=== PATIENT | male | born 1985 | race Caucasian/White ===

== ENCOUNTER 2016-12-28 20:34 | Emergency (ER) | payer MEDICAID ==
[~2016-12-28] VITALS: Ht 177.8 cm; Wt 72.6 kg
[2016-12-28 21:28] LABS: Basophils # (auto) 0 uL; Basophils % (auto) 0.2 % (0.0-2.0); CONDITION Y; Eosinophils # (auto) 0.3 uL; Eosinophils % (auto) 2.2 % (0.0-7.0); Hematocrit 50.7 % (41.0-53.0); Hemoglobin 17.3 g/dL (13.5-17.5); Lymphocytes # (auto) 2.4 uL; Lymphocytes % (auto) 19.9 % (10.0-50.0); Mean Corpuscular Hgb Conc. 34.2 g/dL (32.0-36.0); Mean Corpuscular Volume 93.8 fL (80.0-100.0); Mean Platelet Volume 8.4 fL (7.4-10.4); Monocytes # (auto) 0.5 uL; Monocytes % (auto) 4.5 % (0.0-12.0); Neutrophils # (auto) 8.9 uL; Neutrophils % (auto) 73.2 % (37.0-80.0); Platelet Count (auto) 328 10^3/uL (140-450); Red Cell Distribution Width 13.5 % (11.6-16.0); White Blood Cell 12.1 10^3/uL (4.4-10.8)
[2016-12-28 21:31] LABS: Urine Bilirubin Negative (Negative); Urine Blood Negative /uL (Negative); Urine Color Yellow (Yellow); Urine Glucose Normal (Normal); Urine Ketone Negative (Negative); Urine Mucus FEW (None Seen); Urine Nitrite Negative (Negative); Urine RBC <1 /hpf (0 - 3); Urine Squamous Epithelial Cell FEW /hpf (<5); Urine pH 5.5 (5.0-8.0)
[2016-12-28 21:51] LABS: Albumin 3.9 g/dL (3.4-5.0); Alkaline Phosphatase 86 U/L (45-117); Anion Gap 10 (5-15); Aspartate Aminotransferase 12 U/L (15-37); BUN/Creatinine Ratio 6.8; Bilirubin, Total 0.6 mg/dL (0.2-1.0); Blood Urea Nitrogen 6 mg/dL (7-18); Calcium 8.7 mg/dL (8.5-10.1); Carbon Dioxide 27 mmol/L (21-32); Chloride 107 mmol/L (98-107); GFR African American 129 mL/min; GFR Non-African American 107 mL/min; Glucose 87 mg/dL (74-106); Magnesium 2.3 mg/dL (1.6-2.6); Potassium 3.7 mmol/L (3.5-5.1); Sodium 144 mmol/L (136-145); Total Protein 7.3 g/dL (6.4-8.2)
[2016-12-29] MEDS ORDERED: MORPHINE SULF INJ 2 MG/ML SYRINGE 1ML IV ONE (03:15)
[2016-12-29] MEDS ORDERED: ONDANSETRON HCL 4 MG/2 ML VIAL IV ONE (03:15)
[2016-12-29 03:50] VITALS: BP 123/73
== END 2016-12-29 03:22 | disposition home or self-care (01) ==
LOC: ER 20:40
DX: G92 Toxic encephalopathy (principal); F41.9 Anxiety disorder, unspecified; F10.129 Alcohol abuse with intoxication, unspecified; F17.210 Nicotine dependence, cigarettes, uncomplicated; F12.10 Cannabis abuse, uncomplicated; Y90.6 Blood alcohol level of 120-199 mg/100 ml
CPT/HCPCS: 36415; 71020; 80053; 80307; 81001; 83735; 84443; 84484; 85025; 93005; 96374; 96375; 99285; J2270; J2405

== ENCOUNTER 2017-01-10 12:29 | Emergency (ER) | payer MEDICAID ==
[~2017-01-10] VITALS: Ht 177.8 cm; Wt 68.9 kg
[2017-01-10 12:51] VITALS: BP 105/77
== END 2017-01-10 13:11 | disposition left against medical advice (07) ==
LOC: ER 12:36
DX: R07.89 Other chest pain (principal); Z53.21 Procedure and treatment not carried out due to patient leaving prior to being seen by health care provider
CPT/HCPCS: 93005

== ENCOUNTER 2017-01-18 19:19 | Inpatient (IN) | payer MEDICAID ==
[~2017-01-18] VITALS: Ht 177.8 cm; Wt 73.5 kg
[2017-01-18] MEDS ORDERED: NITROGLYCERIN 0.4 MG SL TAB SL PRN (20:00)
[2017-01-18] MEDS ORDERED: MORPHINE SULF INJ 2 MG/ML SYRINGE 1ML IV PRN (20:00)
[2017-01-18] MEDS ORDERED: ONDANSETRON HCL 4 MG/2 ML VIAL IV PRN (20:00)
[2017-01-18] MEDS ORDERED: METOPROLOL TARTRATE 1MG/1ML-5ML VIAL IV PRN (20:00)
[2017-01-18] MEDS ORDERED: HYDR1TAB97 PO (20:07)
[2017-01-18] MEDS ORDERED: ALPR PO (20:07)
[2017-01-18] MEDS ORDERED: ZOLP10TA PO (20:29)
[2017-01-18 20:31] LABS: Basophils # (auto) 0 uL; Basophils % (auto) 0.4 % (0.0-2.0); Eosinophils # (auto) 0.3 uL; Eosinophils % (auto) 2.9 % (0.0-7.0); Hematocrit 48.8 % (41.0-53.0); Hemoglobin 16.7 g/dL (13.5-17.5); Lymphocytes # (auto) 2.3 uL; Lymphocytes % (auto) 25.3 % (10.0-50.0); Mean Corpuscular Hemoglobin 32.6 pg (28.0-32.0); Mean Corpuscular Hgb Conc. 34.2 g/dL (32.0-36.0); Mean Corpuscular Volume 95.5 fL (80.0-100.0); Mean Platelet Volume 8.7 fL (6.9-10.8); Monocytes # (auto) 0.5 uL; Monocytes % (auto) 5.7 % (0.0-12.0); Neutrophils % (auto) 65.7 % (37.0-80.0); Nucleated Red Blood Cells % 0.1 %; Platelet Count (auto) 235 10^3/uL (140-450); White Blood Cell 9.1 10^3/uL (4.4-10.8)
[2017-01-18 20:43] LABS: Partial Thromboplastin Time 26.5 sec (22.64-33.71); Prothrombin Time 10.9 sec (9.37-12.3)
[2017-01-18] MEDS: MORPHINE SULF INJ 2 MG/ML SYRINGE 1ML IV PRN (20:53)
[2017-01-18] MEDS: SODIUM CHLOR 0.9% PF (SALINE LOCK) 10ML VIAL IV SCH (20:54)
[2017-01-18 20:58] LABS: Albumin 3.8 g/dL (3.4-5.0); BUN/Creatinine Ratio 14.6; Bilirubin, Total 0.3 mg/dL (0.2-1.0); Calcium 8.6 mg/dL (8.5-10.1); Potassium 3.7 mmol/L (3.5-5.1); Total Protein 6.9 g/dL (6.4-8.2)
[2017-01-18 21:00] VITALS: BP 145/66
[2017-01-18 21:16] LABS: Urine Bilirubin Negative (Negative); Urine Blood Negative /uL (Negative); Urine Color Yellow (Yellow); Urine Glucose Normal (Normal); Urine Ketone 1+ (Negative); Urine Mucus FEW (None Seen); Urine Nitrite Negative (Negative); Urine RBC <1 /hpf (0 - 3); Urine Squamous Epithelial Cell FEW /hpf (<5); Urine pH 6.5 (5.0-8.0)
[2017-01-18 21:51] VITALS: BP 145/66
[2017-01-18] MEDS: SODIUM CHLORIDE 0.9% 1,000 ML IV SCH (22:26)
[2017-01-18] MEDS: ZOLPIDEM TARTRATE 5 MG TAB PO PRN (22:54)
[2017-01-18] MEDS: ALPRAZolam 0.5 MG TAB PO PRN (22:54)
[2017-01-19 05:00] VITALS: BP 104/56
[2017-01-19] MEDS: MORPHINE SULF INJ 2 MG/ML SYRINGE 1ML IV PRN ×3 (06:49→18:41)
[2017-01-19 07:41] VITALS: BP 104/61
[2017-01-19] MEDS: HYDROcodone-ACET 5/325MG TAB PO PRN ×2 (08:54→17:25)
[2017-01-19] MEDS: ALPRAZolam 0.5 MG TAB PO PRN (08:54)
[2017-01-19] MEDS: SODIUM CHLORIDE 0.9% 1,000 ML IV SCH ×2 (09:02→17:48)
[2017-01-19] MEDS: SODIUM CHLOR 0.9% PF (SALINE LOCK) 10ML VIAL IV SCH ×2 (10:25→21:05)
[2017-01-19 11:15] VITALS: BP 108/66
[2017-01-19] MEDS ORDERED: LIDOCAINE 2%HCL (LOCAL ANESTH.) INJ 20ML MDV ONE ×2 (13:22→15:42)
[2017-01-19] MEDS ORDERED: ISOPROTERENOL HCL INJECTION 1 MG in D5W 5% 250 ML IV SCH (13:30)
[2017-01-19] MEDS ORDERED: fentaNYL CITRATE 100 MCG/2 ML VL ONE ×2 (13:47→15:33)
[2017-01-19] MEDS ORDERED: MIDAZOLAM HCL 1MG/1ML-2 ML VIAL ONE ×2 (13:47→15:06)
[2017-01-19] MEDS ORDERED: ONDANSETRON HCL 4 MG/2 ML VIAL ONE (14:46)
[2017-01-19] MEDS ORDERED: ADENOSINE 6 MG/2 ML INJ IV ONE ×3 (14:50→14:52)
[2017-01-19] MEDS ORDERED: HEPARIN SODIUM (PORCINE) 5000 UNITS/ML 1ML VIAL ONE ×2 (15:47→15:50)
[2017-01-19] MEDS ORDERED: HEPARIN DRIP/D5W 100UNITS/ML 250 ML IV SCH ×2 (15:55→16:15)
[2017-01-19] MEDS ORDERED: HEPARIN SODIUM (PORCINE) 5000 UNITS/ML 1ML VIAL IV ONE (16:00)
[2017-01-19] MEDS ORDERED: HEPARIN 1,000 UNITS/ml 1ML VIAL ONE (16:05)
[2017-01-19] MEDS ORDERED: IODIXANOL 320MG/ML 100ML BTL IV ONE (16:16)
[2017-01-19] MEDS: ZOLPIDEM TARTRATE 5 MG TAB PO PRN (21:05)
[2017-01-19] MEDS: HYDROmorphone HCL 2 MG/ML VL IV PRN (21:05)
[2017-01-19 21:25] VITALS: BP 137/89
[2017-01-20] MEDS: HYDROmorphone HCL 2 MG/ML VL IV PRN ×4 (00:51→13:55)
[2017-01-20 05:33] VITALS: BP 121/64
[2017-01-20] MEDS: SODIUM CHLORIDE 0.9% 1,000 ML IV SCH ×2 (05:44→13:55)
[2017-01-20] MEDS: HYDROcodone-ACET 5/325MG TAB PO PRN (08:43)
[2017-01-20 10:01] VITALS: BP_SYST 124; BP_SYST 132; BP_DIAS 69; BP_DIAS 72
[2017-01-20] MEDS: SODIUM CHLOR 0.9% PF (SALINE LOCK) 10ML VIAL IV SCH (10:05)
[2017-01-20] MEDS ORDERED: ASPirin 325 MG TAB PO ONE (10:15)
[2017-01-20 12:15] VITALS: BP 123/73
[2017-01-20 14:29] VITALS: BP 132/69
[2017-01-20 14:40] VITALS: BP 132/69
== END 2017-01-20 15:00 | disposition home or self-care (01) | DRG 175 ==
LOC: TELE-EAST 19:19
PROVIDERS: ADMIT Internal Medicine; ATTEND Internal Medicine
PROC: 02583ZZ Destruction of Conduction Mechanism, Percutaneous Approach (ICD-10-PCS; principal; 2017-01-19)
PROC: 02K83ZZ Map Conduction Mechanism, Percutaneous Approach (ICD-10-PCS; 2017-01-19)
PROC: 4A023FZ Measurement of Cardiac Rhythm, Percutaneous Approach (ICD-10-PCS; 2017-01-19)
PROC: 4A0234Z Measurement of Cardiac Electrical Activity, Percutaneous Approach (ICD-10-PCS; 2017-01-19)
PROC: B41F1ZZ Fluoroscopy of Right Lower Extremity Arteries using Low Osmolar Contrast (ICD-10-PCS; 2017-01-19)
DX: I47.1 Supraventricular tachycardia (principal); F41.9 Anxiety disorder, unspecified; I45.6 Pre-excitation syndrome; G47.00 Insomnia, unspecified
CPT/HCPCS: 93613; 93653; G0278; 36415; 71010; 80053; 81001; 85025; 85610; 85730; 93005; 99152; 99153; J0153; J2250; J2405; J7060; Q9967